=== PATIENT | female | born 1995 | race African-American/Black ===

== ENCOUNTER 2022-07-15 15:10 | Emergency (ER) | payer MEDICAID ==
[~2022-07-15] VITALS: Ht 170.2 cm; Wt 59.0 kg
[2022-07-15] MEDS ORDERED: LORAZEPAM 1MG TABLET PO ONE (18:00)
[2022-07-15 18:09] LABS: CLARITY URINE CLEAR (CLEAR); COLOR URINE YELLOW (YELLOW); KETONES URINE TRACE (NEGATIVE); LEUKOCYTE ESTERASE URINE 1+ (NEGATIVE); NITRITE URINE NEGATIVE (NEGATIVE); OCCULT BLOOD URINE NEGATIVE (NEGATIVE); PH URINE 6.5 (4.5-8.0); PROTEIN URINE NEGATIVE (NEGATIVE); SPECIFIC GRAVITY URINE 1.011 (1.005-1.030); UROBILINOGEN URINE 0.2 E.U./dL (0.2-1.0)
[2022-07-15 18:21] LABS: BASOPHILS % 0.8 % (0.0-2.0); EOSINOPHILS % 1.4 % (0.0-5.0); HEMATOCRIT. 41.6 % (36.0-48.0); HEMOGLOBIN. 13.9 g/dL (12.0-16.0); LYMPHOCYTES % 33.8 % (20.0-50.0); MEAN CORPUSCULAR HEMOGLOBIN 29.7 pg (28.0-32.0); MEAN CORPUSCULAR VOLUME 88.6 fL (81.0-99.0); MEAN PLATELET VOLUME 7.4 fl (7.4-10.4); MONOCYTES % 4.1 % (2.0-8.0); NEUTROPHILS % 59.9 % (40.0-76.0); PLATELET 313 x1000/uL (130-400); RED BLOOD CELL COUNT 4.69 mill/uL (4.2-5.4); RED CELL DISTRIBUTION WIDTH 12.8 % (11.6-14.6)
[2022-07-15 18:22] LABS: CHLORIDE 107 mEq/L (98-107)
[2022-07-15 18:24] LABS: *AMPHETAMINES SCREEN URINE NEGATIVE (NEGATIVE); *BARBITURATES SCREEN URINE NEGATIVE (NEGATIVE); *BENZODIAZEPINES SCREEN URINE NEGATIVE (NEGATIVE); *COCAINE SCREEN URINE NEGATIVE (NEGATIVE); CANNABINOID URINE SCREEN NEGATIVE (NEGATIVE); METHADONE URINE SCREEN NEGATIVE (NEGATIVE); OPIATES URINE SCREEN NEGATIVE (NEGATIVE); PHENCYCLIDINE URINE SCREEN NEGATIVE (NEGATIVE)
[2022-07-15 18:31] LABS: ETHANOL BLOOD < 10 mg/dL
[2022-07-15 19:25] LABS: HCG SCREEN NEGATIVE
[2022-07-16 06:24] VITALS: BP 93/44
== END 2022-07-16 12:10 | disposition home or self-care (01) ==
LOC: ER 16:06
DX: F33.1 Major depressive disorder, recurrent, moderate (principal); R45.851 Suicidal ideations; Z20.822 Contact with and (suspected) exposure to COVID-19; R56.9 Unspecified convulsions
CPT/HCPCS: 36415; 80053; 80305; 80307; 80320; 80329; 81003; 81025; 84703; 85025; 87426; 99285; C9803; G0480

== ENCOUNTER 2025-05-02 10:33 | Emergency (ER) | payer MEDICAID ==
[~2025-05-02] VITALS: Ht 167.6 cm; Wt 74.0 kg
[2025-05-02 10:52] VITALS: TEMP 36.7; O2SAT 99
[2025-05-02] MEDS: IBUPROFEN 400MG TABLET PO ONE (11:30)
[2025-05-02] MEDS ORDERED: IBUP-2437 MT (12:01)
[2025-05-02 12:14] VITALS: BP 123/84; PULSE 75; RESP 16; O2SAT 100
== END 2025-05-02 12:16 | disposition home or self-care (01) ==
LOC: ER 10:33
DX: S90.122A Contusion of left lesser toe(s) without damage to nail, initial encounter (principal); F31.9 Bipolar disorder, unspecified; X58.XXXA Exposure to other specified factors, initial encounter; Y93.89 Activity, other specified; Y92.89 Other specified places as the place of occurrence of the external cause; Y99.8 Other external cause status
CPT/HCPCS: 73660; 81025; 99283

== ENCOUNTER 2025-05-10 08:22 | Emergency (ER) | payer MEDICAID ==
[~2025-05-10] VITALS: Ht 162.6 cm; Wt 68.0 kg
[~2025-05-10 08:22] MED LIST: IBUP-2437 MT
[2025-05-10 08:24] VITALS: O2SAT 100
[2025-05-10] MEDS: IBUPROFEN 600MG TABLET PO ONE (09:02)
[2025-05-10] MEDS ORDERED: IBUP-1455 MT (09:08)
[2025-05-10 09:37] VITALS: BP 122/72; PULSE 87; RESP 18; TEMP 37.1; O2SAT 100
== END 2025-05-10 09:39 | disposition home or self-care (01) ==
LOC: ER 08:22
DX: S83.92XA Sprain of unspecified site of left knee, initial encounter (principal); F31.9 Bipolar disorder, unspecified; W10.9XXA Fall (on) (from) unspecified stairs and steps, initial encounter; Y93.89 Activity, other specified; Y92.89 Other specified places as the place of occurrence of the external cause; Y99.8 Other external cause status
CPT/HCPCS: 73562; 81025; 99283